=== PATIENT | female | born 1960 ===

== ENCOUNTER 2024-07-26 00:35 | Inpatient (IN) | payer MEDICARE ==
[~2024-07-26] VITALS: Ht 149.9 cm; Wt 49.9 kg
[2024-07-26] MEDS ORDERED: MAGN400O6 PO (01:15)
[2024-07-26] MEDS ORDERED: BENZ0.5T43 PO (01:15)
[2024-07-26] MEDS ORDERED: QUET200T PO (01:15)
[2024-07-26] MEDS ORDERED: QUET25TA PO (01:15)
[2024-07-26] MEDS ORDERED: MIRT-121 PO (01:15)
[2024-07-26] MEDS ORDERED: LISI10TA29 PO (01:15)
[2024-07-26] MEDS ORDERED: ACET-73 PO (01:15)
[2024-07-26] MEDS ORDERED: MEGE20TA4 PO (01:15)
[2024-07-26 01:18] LABS: BASOPHILS % (AUTO) 0.6 % (0.0-2.0); EOSINOPHILS # (AUTO) 0.1 K/uL (0.0-0.7); EOSINOPHILS % (AUTO) 1.1 % (0.0-7.0); HEMATOCRIT 41.6 % (31.2-41.9); HEMOGLOBIN 14.7 g/dL (10.9-14.3); LYMPHOCYTES # (AUTO) 2.8 K/uL (0.8-4.8); LYMPHOCYTES % (AUTO) 38.6 % (20.5-51.5); MEAN CORPUSCULAR HEMOGLOBIN 31.5 uug (24.7-32.8); MEAN CORPUSCULAR HGB CONC 35 g/dL (32.3-35.6); MONOCYTES # (AUTO) 0.4 K/uL (0.1-1.30); MONOCYTES % (AUTO) 6.1 % (0.0-11.0); NEUTROPHILS # (AUTO) 3.9 K/uL (1.8-8.9); NEUTROPHILS % (AUTO) 53.6 % (38.5-71.5); PLATELET COUNT (AUTO) 157 K/uL (179-408); RED BLOOD CELL COUNT(AUTO) 4.67 MIL/uL (3.63-4.92); RED CELL DISTRIBUTION WIDTH 13.5 % (12.3-17.7); WHITE BLOOD COUNT (AUTO) 7.2 K/uL (3.8-11.8)
[2024-07-26 01:32] LABS: THYROID STIMULATING HORMONE 1.213 mIU/mL (0.358-3.740)
[2024-07-26 02:00] LABS: ETHANOL < 3 MG/DL (0-10)
[2024-07-26 03:02] LABS: CARBON DIOXIDE 25 mmol/L (21-32); CHLORIDE 100 mmol/L (98-107); POTASSIUM 3.5 mmol/L (3.5-5.1); SODIUM SERUM 141 mmol/L (136-145)
[2024-07-26 03:03] LABS: ALANINE AMINOTRANSFERASE 14 U/L (14-59); ALKALINE PHOSPHATASE 95 U/L (50-136); ASPARTATE AMINOTRANSFERASE 18 U/L (15-37); BILIRUBIN,DIRECT 0.3 mg/dL (0.0-0.2); BILIRUBIN,TOTAL 1.1 mg/dL (0.2-1.0); CALCIUM 9.3 mg/dL (8.5-10.1); CREATININE 0.7 mg/dL (0.6-1.3); GLUCOSE 96 mg/dL (74-106); UREA NITROGEN, BLOOD 14 mg/dL (7-18)
[2024-07-26 03:04] LABS: ACETAMINOPHEN < 2.0 ug/mL (10-30); ALBUMIN 3.8 g/dL (3.4-5.0); TOTAL PROTEIN, SERUM 8.1 g/dL (6.4-8.2)
[2024-07-26 08:50] VITALS: BP 127/52; TEMP 97.5; O2SAT 98
[2024-07-26] MEDS ORDERED: MEGE625O5 PO (10:27)
[2024-07-26] MEDS ORDERED: ACET-2154 PO (10:30)
[2024-07-26] MEDS ORDERED: ACETAMINOPHEN 325 MG TABLET PO PRN (11:00)
[2024-07-26] MEDS ORDERED: MAG HYDROX/AL HYDROX/SIMETH 30 ML LIQUID UDC PO PRN (11:00)
[2024-07-26] MEDS ORDERED: ZOLPIDEM 5 MG TABLET PO PRN (11:00)
[2024-07-26] MEDS ORDERED: MAGNESIUM HYDROXIDE 30 ML LIQUID UDC PO PRN (11:00)
[2024-07-26] MEDS ORDERED: QUETIAPINE FUMARATE 25 MG TABLET PO PRN (11:00)
[2024-07-26] MEDS: BLOOD SUGAR DIAGNOSTIC 1 EACH STRIP VI ONE (11:15)
[2024-07-26 16:57] VITALS: BP 125/79; TEMP 97.9; O2SAT 98
[2024-07-26] MEDS: BENZTROPINE MESYLATE 0.5 MG TABLET PO SCH (17:00)
[2024-07-26 20:07] VITALS: BP 120/64; TEMP 97.9; O2SAT 98
[2024-07-26] MEDS: OLANZAPINE 2.5 MG TABLET PO SCH (21:00)
[2024-07-26] MEDS: MIRTAZAPINE 15 MG TABLET PO SCH (21:00)
[2024-07-27 09:13] VITALS: BP 105/67; TEMP 98.3; O2SAT 98
[2024-07-27] MEDS ORDERED: MAGNESIUM HYDROXIDE 30 ML LIQUID UDC PO PRN (10:00)
[2024-07-27 16:19] VITALS: BP 103/69; TEMP 98.1; O2SAT 98
[2024-07-27 20:05] VITALS: BP 94/57; TEMP 98; O2SAT 98
[2024-07-28 08:21] VITALS: BP 92/71; TEMP 98.3; O2SAT 98
[2024-07-28] MEDS ORDERED: MEGESTROL ACETATE 400 MG/10 ML LIQUID UDC PO SCH ×2 (09:00)
[2024-07-28] MEDS: LISINOPRIL 10 MG TABLET PO SCH (09:00)
[2024-07-28] MEDS ORDERED: MEGESTROL ACETATE 625 MG PO SCH (09:00)
[2024-07-28] MEDS: MEGESTROL ACETATE 400 MG/10 ML LIQUID UDC PO SCH (12:45)
[2024-07-28] MEDS: DIVALPROEX 125 MG TABLET.DR PO SCH (13:05)
[2024-07-28 16:42] VITALS: BP 106/52; TEMP 98.1; O2SAT 98
[2024-07-28 19:53] VITALS: BP 100/62; TEMP 98.1; O2SAT 96
[2024-07-28] MEDS: OLANZAPINE 2.5 MG TABLET PO SCH (20:36)
[2024-07-29 07:39] VITALS: BP 106/54; TEMP 98; O2SAT 98
[2024-07-29 15:28] VITALS: BP 102/48; TEMP 98; O2SAT 98
[2024-07-29 19:48] VITALS: BP 101/51; TEMP 98.1; O2SAT 98
[2024-07-30 07:50] VITALS: BP 109/59; TEMP 98; O2SAT 99
[2024-07-30] MEDS: ENSURE ENLIVE (VAN) 240 ML LIQUID PO SCH (09:00)
[2024-07-31 08:18] VITALS: BP 111/58; TEMP 98.2; O2SAT 98
[2024-07-31 15:13] VITALS: BP 123/73; TEMP 98.2; O2SAT 98
[2024-07-31 20:00] VITALS: BP 139/67; TEMP 98.9; O2SAT 98
[2024-08-01 08:00] VITALS: BP 121/72; TEMP 97.9; O2SAT 95
[2024-08-01] MEDS ORDERED: OLANZAPINE 10 MG VIAL IM PRN (10:30)
[2024-08-01 16:00] VITALS: BP 104/62; TEMP 98.1; O2SAT 97
[2024-08-01 20:08] VITALS: BP 169/74; TEMP 98.2; O2SAT 100
[2024-08-02 08:20] VITALS: BP 92/53; TEMP 98.2; O2SAT 97
[2024-08-02 17:37] VITALS: BP 91/54; TEMP 98.1; O2SAT 97
[2024-08-02 20:00] VITALS: BP 81/53; TEMP 97.9; O2SAT 97
[2024-08-02] MEDS: OLANZAPINE 5 MG TABLET PO SCH (21:30)
[2024-08-03 08:16] VITALS: BP 91/53; TEMP 98.2; O2SAT 97
[2024-08-03 16:41] VITALS: BP 98/52; TEMP 98.1; O2SAT 97
[2024-08-03] MEDS: IV NORMAL SALINE 500 ML IV ONE (20:45)
[2024-08-03] MEDS: DIVALPROEX 125 MG TABLET.DR PO SCH (21:00)
[2024-08-04 09:01] VITALS: BP 91/53; TEMP 98.5; O2SAT 98
[2024-08-04] MEDS: DIVALPROEX 250 MG TABLET.DR PO SCH (09:08)
[2024-08-04 15:05] VITALS: BP 90/51; TEMP 98.3; O2SAT 97
[2024-08-04 20:00] VITALS: BP 97/61; TEMP 98.1; O2SAT 96
[2024-08-05 07:40] VITALS: BP 107/65; TEMP 98; O2SAT 100
[2024-08-05 15:04] VITALS: BP 91/58; TEMP 98; O2SAT 99
[2024-08-05 20:00] VITALS: BP 91/53; TEMP 98.1; O2SAT 98
[2024-08-05] MEDS ORDERED: OLANZAPINE 10 MG VIAL IM PRN (21:00)
[2024-08-05] MEDS: OLANZAPINE 5 MG TABLET PO SCH (21:12)
[2024-08-06 07:47] VITALS: BP 90/48; TEMP 98; O2SAT 98
[2024-08-06 15:51] VITALS: BP 105/53; TEMP 98; O2SAT 98
[2024-08-06 16:43] LABS: *BILIRUBIN,URIN NEGATIVE (NEGATIVE); *BLOOD, URINE NEGATIVE (NEGATIVE); *CLARITY,URINE CLOUDY (CLEAR); *COLOR,URINE YELLOW (YELLOW); *KETONES,URINE 1+ (NEGATIVE); *PROTEIN,URINE 2+ (NEGATIVE); LEUKOCYTE ESTERASE ,URINE 1+ (NEGATIVE); NITRITE, URINE NEGATIVE (NEGATIVE); UGLUCOSE NEGATIVE (NEGATIVE)
[2024-08-06 16:55] LABS: BACTERIA,URINE FEW /HPF (NONE SEEN); RBC,URINE 0-3 /HPF (0-3); SQUAMOUS EPITHELIAL CELL,UR FEW /HPF (NONE SEEN)
[2024-08-06 16:56] LABS: URINE AMORPHOUS URATE MODERATE /HPF
[2024-08-06 20:00] VITALS: BP 99/52; TEMP 98.5; O2SAT 97
[2024-08-06] MEDS: MIRTAZAPINE 15 MG TABLET PO SCH (21:27)
[2024-08-07 07:19] LABS: BASOPHILS % (AUTO) 0.3 % (0.0-2.0); EOSINOPHILS # (AUTO) 0.1 K/uL (0.0-0.7); EOSINOPHILS % (AUTO) 2.3 % (0.0-7.0); HEMATOCRIT 34.6 % (31.2-41.9); HEMOGLOBIN 12.1 g/dL (10.9-14.3); LYMPHOCYTES # (AUTO) 2.8 K/uL (0.8-4.8); LYMPHOCYTES % (AUTO) 53.1 % (20.5-51.5); MEAN CORPUSCULAR HEMOGLOBIN 31.9 uug (24.7-32.8); MEAN CORPUSCULAR HGB CONC 35 g/dL (32.3-35.6); MEAN CORPUSCULAR VOLUME 91.3 fL (75.5-95.3); MONOCYTES # (AUTO) 0.4 K/uL (0.1-1.30); MONOCYTES % (AUTO) 8.3 % (0.0-11.0); NEUTROPHILS # (AUTO) 1.9 K/uL (1.8-8.9); PLATELET COUNT (AUTO) 114 K/uL (179-408); RED BLOOD CELL COUNT(AUTO) 3.79 MIL/uL (3.63-4.92); RED CELL DISTRIBUTION WIDTH 14.3 % (12.3-17.7); WHITE BLOOD COUNT (AUTO) 5.3 K/uL (3.8-11.8)
[2024-08-07 07:41] LABS: ALBUMIN 2.8 g/dL (3.4-5.0); BILIRUBIN,TOTAL 0.7 mg/dL (0.2-1.0); CALCIUM 8.7 mg/dL (8.5-10.1); CREATININE 0.8 mg/dL (0.6-1.3); POTASSIUM 3.9 mmol/L (3.5-5.1); TOTAL PROTEIN, SERUM 6.5 g/dL (6.4-8.2)
[2024-08-07 07:56] VITALS: BP 106/67; TEMP 98; O2SAT 96
[2024-08-07] MEDS: NITROFURANTOIN/NITROFURAN MAC 100 MG CAPSULE PO SCH (13:50)
[2024-08-07 15:49] VITALS: BP 94/55; TEMP 98; O2SAT 96
[2024-08-07 20:00] VITALS: BP 91/58; TEMP 98.5; O2SAT 96
[2024-08-08 07:49] VITALS: BP 114/63; TEMP 98; O2SAT 98
[2024-08-08 15:13] VITALS: BP 124/64; TEMP 98; O2SAT 96
[2024-08-08 20:00] VITALS: BP 96/60; TEMP 98; O2SAT 95
[2024-08-09 08:46] VITALS: BP 121/70; TEMP 98.4; O2SAT 97
[2024-08-09 17:13] VITALS: BP 109/73; TEMP 98.2; O2SAT 98
[2024-08-09 20:00] VITALS: BP 120/69; TEMP 98.9; O2SAT 96
[2024-08-10 09:22] VITALS: BP 147/60; TEMP 98.1; O2SAT 98
[2024-08-10 17:24] VITALS: BP 97/50; TEMP 98; O2SAT 97
[2024-08-10 19:58] VITALS: BP 107/69; TEMP 98; O2SAT 98
[2024-08-11 07:39] LABS: BASOPHILS % (AUTO) 0.3 % (0.0-2.0); EOSINOPHILS # (AUTO) 0.1 K/uL (0.0-0.7); HEMATOCRIT 29.7 % (31.2-41.9); HEMOGLOBIN 10.3 g/dL (10.9-14.3); LYMPHOCYTES # (AUTO) 2.4 K/uL (0.8-4.8); MEAN CORPUSCULAR HEMOGLOBIN 32.5 uug (24.7-32.8); MEAN CORPUSCULAR HGB CONC 35 g/dL (32.3-35.6); MEAN CORPUSCULAR VOLUME 93.1 fL (75.5-95.3); MONOCYTES # (AUTO) 0.3 K/uL (0.1-1.30); MONOCYTES % (AUTO) 6.1 % (0.0-11.0); NEUTROPHILS # (AUTO) 2.5 K/uL (1.8-8.9); NEUTROPHILS % (AUTO) 46.6 % (38.5-71.5); PLATELET COUNT (AUTO) 99 K/uL (179-408); RED BLOOD CELL COUNT(AUTO) 3.19 MIL/uL (3.63-4.92); RED CELL DISTRIBUTION WIDTH 14.2 % (12.3-17.7); WHITE BLOOD COUNT (AUTO) 5.3 K/uL (3.8-11.8)
[2024-08-11 08:00] VITALS: BP 125/65; TEMP 97.6; O2SAT 97
[2024-08-11 08:10] LABS: DIFFERENTIAL COMMENT 1
[2024-08-11 10:21] LABS: EOSINOPHILS % (MANUAL) 1 % (0-8); LYMPHOCYTES % (MANUAL) 37 % (20-40); MONOCYTES % (MANUAL) 5 % (2-10); NEUTROPHILS % (MANUAL) 57 % (42-75); PLATELET ESTIMATE DECREASED
[2024-08-11] MEDS: DIVALPROEX 125 MG TABLET.DR PO SCH (14:36)
[2024-08-11 15:51] VITALS: BP 98/59; TEMP 97.6; O2SAT 97
[2024-08-11 20:00] VITALS: BP 111/60; TEMP 97.8; O2SAT 96
[2024-08-11] MEDS ORDERED: MIRTAZAPINE 15 MG TABLET ONE (20:19)
[2024-08-11] MEDS: OLANZAPINE 5 MG TABLET PO SCH (20:22)
[2024-08-12 07:51] VITALS: BP_SYST 125; BP_SYST 99; BP_DIAS 48; BP_DIAS 60; TEMP 98; O2SAT 100; O2SAT 96
[2024-08-12 15:05] VITALS: BP 90/48; TEMP 98; O2SAT 96
[2024-08-12 19:41] VITALS: BP 101/66; TEMP 97.9; O2SAT 96
[2024-08-12] MEDS: DIVALPROEX 125 MG TABLET.DR PO SCH (20:12)
[2024-08-13 08:04] VITALS: BP 118/51; TEMP 98; O2SAT 98
[2024-08-13 16:07] VITALS: BP 93/73; TEMP 98; O2SAT 98
[2024-08-13 20:05] VITALS: BP 101/51; TEMP 98.1; O2SAT 96
[2024-08-14 09:12] VITALS: BP 120/68; TEMP 98; O2SAT 98
[2024-08-14 10:53] LABS: BASOPHILS % (AUTO) 0.5 % (0.0-2.0); EOSINOPHILS # (AUTO) 0.1 K/uL (0.0-0.7); EOSINOPHILS % (AUTO) 1.3 % (0.0-7.0); HEMATOCRIT 30.1 % (31.2-41.9); HEMOGLOBIN 10.4 g/dL (10.9-14.3); LYMPHOCYTES # (AUTO) 2.4 K/uL (0.8-4.8); LYMPHOCYTES % (AUTO) 49.2 % (20.5-51.5); MEAN CORPUSCULAR HEMOGLOBIN 33.1 uug (24.7-32.8); MEAN CORPUSCULAR HGB CONC 35 g/dL (32.3-35.6); MEAN CORPUSCULAR VOLUME 95.7 fL (75.5-95.3); MONOCYTES # (AUTO) 0.3 K/uL (0.1-1.30); MONOCYTES % (AUTO) 6.3 % (0.0-11.0); NEUTROPHILS # (AUTO) 2.1 K/uL (1.8-8.9); NEUTROPHILS % (AUTO) 42.7 % (38.5-71.5); PLATELET COUNT (AUTO) 105 K/uL (179-408); RED BLOOD CELL COUNT(AUTO) 3.15 MIL/uL (3.63-4.92); RED CELL DISTRIBUTION WIDTH 15.2 % (12.3-17.7)
[2024-08-14 11:00] LABS: DIFFERENTIAL COMMENT 1
== END 2024-08-14 15:15 | DRG 885 ==
LOC: ER 00:44 → GPS 07:19
PROVIDERS: ADMIT Psychiatry & Neurology Psychiatry; ATTEND Student in an Organized Health Care Education/Training Program
DX: F32.3 Major depressive disorder, single episode, severe with psychotic features (principal); N39.0 Urinary tract infection, site not specified; E11.9 Type 2 diabetes mellitus without complications; R79.89 Other specified abnormal findings of blood chemistry; I10 Essential (primary) hypertension; Z79.899 Other long term (current) drug therapy; R13.10 Dysphagia, unspecified; K59.00 Constipation, unspecified; R41.89 Other symptoms and signs involving cognitive functions and awareness; R26.9 Unspecified abnormalities of gait and mobility; Z91.148 Patient's other noncompliance with medication regimen for other reason
CPT/HCPCS: 36415; 70030-TC; 80164; 84443; 85025; G0480; J3490; J7040; J8999